=== PATIENT | male | born 1950 ===

== ENCOUNTER 2017-05-22 18:23 | Emergency (ER) | payer MEDICARE, BC ==
[2017-05-22 18:23] VITALS: BMI 26.6
[2017-05-22 18:37] VITALS: BP 141/67; PULSE 97; RESP 16; TEMP 98.2; O2SAT 99
[2017-05-22] MEDS ORDERED: Oxycodone/Acetaminophen 5/325 mg Tab PO STA (19:35)
[2017-05-22] MEDS ORDERED: Oxycodone/Acetaminophen 5/325 mg Tab ONE (19:43)
--- NOTE | 2017-05-22 20:13 | ED PDOC ---
Lower Extremity Pain/Injury Time Seen by Provider: 05/22/17 19:14 Chief Complaint (Nursing): Lower Extremity Problem/Injury Chief Complaint (Provider): Left leg pain History Per: Patient History/Exam Limitations: no limitations Onset/Duration Of Symptoms: Persistent (weeks) Current Symptoms Are (Timing): Still Present Additional Complaint(s): 67yo male, history of multiple myeloma, presents to ED with complaints of left leg pain, present for weeks. Patient states he was evaluated for his symptoms at [facility] but presents here because he did not like that facility. Patient is also requesting to sleep in the ER all night. Of note, patient had a recent doppler study which was negative. No other complaints. No CP, SOB/difficulty breathing. Past Medical History Reviewed: Historical Data Vital Signs: Last Vital Signs Temp 98.2 F 05/22/17 18:28 Pulse 97 H 05/22/17 18:28 Resp 16 05/22/17 18:28 BP 141/67 05/22/17 18:28 Pulse Ox 99 05/22/17 18:28 - Medical History PMH: Anemia, Atrial Fibrillation, Depression, Diabetes, Fractures (VERTEBRAE), HTN, Malignancy (MULTIPLE MYELOMA), End Stage Renal Disease, Chronic Kidney Disease - Surgical History Surgical History: Pacemaker - Family History Family History: States: Unknown Family Hx - Immunization History Hx Tetanus Toxoid Vaccination: No Hx Influenza Vaccination: No Hx Pneumococcal Vaccination: No - Home Medications Home Medications: Ambulatory Orders Medication Instructions Recorded Clindamycin [Cleocin] 300 mg PO QID #28 cap 01/19/17 Loratadine [Claritin] 10 mg PO MWF PRN #30 tab 01/19/17 oxyCODONE/Acetaminophen [Percocet 1 tab PO QID PRN #12 tab 01/19/17 5/325 mg Tab] - Allergies Allergies/Adverse Reactions: Allergies Allergy/AdvReac Type Severity Reaction Status Date / Time No Known Allergies Allergy Verified 05/22/17 18:26 Review of Systems ROS Statement: Except As Marked, All Systems Reviewed And Found Negative Musculoskeletal: Positive for: Leg Pain (left ) Physical Exam - Reviewed Nursing Documentation Reviewed: Yes Vital Signs Reviewed: Yes - Physical Exam Appears: Positive for: Non-toxic, No Acute Distress Skin: Positive for: Normal Color Eye Exam: Positive for: Normal appearance Neck: Positive for: Supple Cardiovascular/Chest: Positive for: Regular Rate, Rhythm Respiratory: Negative for: Respiratory Distress Pulses-Post. Tibialis (L): 1+ Pulses-Post. Tibialis (R): 1+ Extremity: Positive for: Normal ROM, Swelling (swelling of left ankle, non- pitting edema noted.), Other (no erythema or warmth noted to left leg). Negative for: Calf Tenderness Neurologic/Psych: Positive for: Alert, Oriented - ECG O2 Sat by Pulse Oximetry: 99 (RA) Pulse Ox Interpretation: Normal Medical Decision Making Medical Decision Making: Impression: Chronic venous stasis Plan: -- percocet 1 tab PO -- XR left ankle -- XR left tib/fib -- US Duplex Reassess Time: 2052 US Duplex IMPRESSION: 1. No evidence of DVT within LEFT lower extremity. Time: 2102 Patient stable for discharge home. Scribe Attestation: Documented by Myranda Noyola acting as a scribe for Kolton Bucio MD. Provider Attestation: All medical record entries made by the Scribe were at my direction and personally dictated by me. I have reviewed the chart and agree that the record accurately reflects my personal performance of the history, physical exam, medical decision making, and the department course for this patient. I have also personally directed, reviewed, and agree with the discharge instructions and disposition. Disposition - Clinical Impression Clinical Impression: Ankle swelling - Disposition Referrals: Puma Owens MD [Family Provider] - Disposition: Routine/Home Disposition Time: 21:03 Condition: STABLE Instructions: Leg Edema (ED) Forms: [employer] (Mongolian) Print Language: BELARUSIAN
--- NOTE | 2017-05-22 20:53 | US ---
EXAM: US Duplex Left Lower Extremity Veins CLINICAL HISTORY: 67 years old, male; Signs and symptoms; Swelling of limb; Lower extremity, left; Additional info: Lle swelling TECHNIQUE: Real-time ultrasound scan of the veins of the left lower extremity with color Doppler flow, spectral waveform analysis and compression. COMPARISON: No relevant prior studies available. FINDINGS: Deep veins: Normal color and spectral Doppler flow. Normal compressibility. No deep vein thrombosis from common femoral to popliteal vein. Superficial veins: No thrombosis. Soft tissues: No popliteal cyst. IMPRESSION: 1. No evidence of DVT within LEFT lower extremity.
--- NOTE | 2017-05-23 08:05 | RAD ---
PROCEDURE: Radiographs of the left tibia and fibula. HISTORY: LLE swelling swelling COMPARISON: None available. TECHNIQUE: Frontal and lateral views obtained. FINDINGS: BONES: No fracture or destructive lesion. JOINT SPACES: Incompletely visualized degenerative changes affecting left knee and left ankle. OTHER FINDINGS: Diffuse arterial/ vascular calcifications. IMPRESSION: No significant or acute findings to account for/ related to the clinical presentation. Concordant results with the preliminary interpretation rendered by the emergency department physician procedure.
--- NOTE | 2017-05-23 08:06 | RAD ---
PROCEDURE: Left Ankle Radiographs. HISTORY: ankle swelling COMPARISON: None FINDINGS: BONES: Normal. No fracture. JOINTS: Degenerative changes about ankle. Diffuse osteopenia noted. SOFT TISSUES: Send soft tissue swelling is diffuse about the ankle without evidence of distal tibial or fibular fracture. OTHER FINDINGS: None. IMPRESSION: Soft tissue swelling without acute articular or osseous abnormality. Concordant results with the preliminary interpretation rendered by the emergency department physician procedure.
== END 2017-05-22 23:02 | disposition home or self-care (01) ==
LOC: H.ER 18:23
DX: R60.0 Localized edema (principal); F32.9 Major depressive disorder, single episode, unspecified; I12.0 Hypertensive chronic kidney disease with stage 5 chronic kidney disease or end stage renal disease; I48.91 Unspecified atrial fibrillation; Z95.0 Presence of cardiac pacemaker; N18.6 End stage renal disease